=== PATIENT | female | born 1950 | race Caucasian/White ===

== ENCOUNTER 2020-02-20 18:27 | Inpatient (IN) ==
[2020-02-20] MEDS ORDERED: SODIUM CHLORIDE 0.9% 1,000 ML IV STA (18:58)
[2020-02-20] MEDS ORDERED: ACETAMINOPHEN 500 MG TABLET PO STA (18:59)
[2020-02-20 20:05] LABS: Basophils % 0.2 % (0.0-0.8); Hematocrit 36.6 VOL% (35.7-47.0); Hemoglobin 12.1 GM/DL (12.0-16.0); Immature Granulocytes % 0.5 %; Immature Granulocytes Absolute 0.03 #; Lymphocytes # 0.8 10*3/uL (1.4-4.0); Lymphocytes % 13.6 % (21.3-54.2); Mean Corpuscular HGB Conc 33.1 GM/DL (32-36); Mean Corpuscular Volume 94.8 FL (87-102); Mean Platelet Volume 9.8 FL (9.6-12.0); Monocytes % 3.6 % (1.7-12.7); Neutrophils % 82.1 % (38.7-73.9); Platelet Count 217 T/CUMM (130-400); Red Blood Count 3.86 MC/CUMM (3.8-5.5); Red Cell Distribution Width 12.6 % (9.3-17.3); White Blood Count 5.8 T/CUMM (4-12)
[2020-02-20 20:16] LABS: PT Patient Result 10.3 SECS (9.8-11.9)
[2020-02-20 20:29] LABS: Alanine Aminotransferase 19 U/L (13-56); Albumin 2.3 G/DL (3.4-5.0); Alkaline Phosphatase 38 U/L (45-117); Aspartate Amino Transferase 37 U/L (0-37); Bilirubin,Total < 0.39 MG/DL (0.2-1.0); Blood Urea Nitrogen 9 MG/DL (7-18); Calcium 6.8 MG/DL (8.5-10.1); Estimated Glom Filtration Rate 63 ML/MIN; Glucose 81 MG/DL (74-106); Osmolality,Calculated 265.2 MOS/KG (273-304); Total Protein 5.8 G/DL (6.4-8.3)
[2020-02-20 21:07] LABS: Apearance,Urine CLEAR (Clear); Bilirubin,Urine Negative (Negative); Blood, Urine Negative (Negative); Glucose,Urine (UA) Negative (Negative); Ketones,Urine 5 mg/dL (Negative); Mucus,Urine Occasional /LPF (Occasional); Nitrite,Urine Negative (Negative); Protein,Urine Negative; RBC,Urine 1 /HPF (0-4); Squamous Epithelial Cell,Urine Occasional /HPF (0-10); Urine Color Yellow (Yellow); Urine Specific Gravity 1.012 (1.001-1.035); Urine Urobilinogen < 2.0 EU/DL (0.2-1.0)
[2020-02-20] MEDS ORDERED: ALUMINUM/MAGNES/SIMETH MAX STR 30 ML UDCUP PO PRN (21:24)
[2020-02-20] MEDS ORDERED: CALCIUM CARBONATE CHEW 500 MG TABLET PO PRN (21:24)
[2020-02-20] MEDS ORDERED: diphenhydrAMINE CAP 25 MG CAPSULE PO PRN (21:24)
[2020-02-20] MEDS ORDERED: DEXTROSE 50% 25 GM/50 ML VIAL IV PRN (21:24)
[2020-02-20] MEDS ORDERED: hydrALAZINE 20 MG/1 ML VIAL IV PRN (21:24)
[2020-02-20] MEDS ORDERED: NICOTINE 21 MG/24 HR PATCH TRANSDERM PRN (21:24)
[2020-02-20] MEDS ORDERED: DOCUSATE SODIUM 100 MG CAPSULE PO PRN (21:24)
[2020-02-20] MEDS ORDERED: ONDANSETRON 4 MG/2 ML VIAL IV PRN (21:24)
[2020-02-20] MEDS ORDERED: GLUCAGON 1 MG VIAL IM PRN (21:24)
[2020-02-20] MEDS ORDERED: LACTULOSE 20 GM/30 ML UDCUP PO PRN (21:24)
[2020-02-20] MEDS ORDERED: SIMETHICONE CHEW 125 MG TABLET PO PRN (21:24)
[2020-02-20] MEDS ORDERED: MORPHINE 4 MG/1 ML VIAL IV PRN (21:24)
[2020-02-20] MEDS ORDERED: guaiFENesin/DM ER 600-30 MG TABLET PO PRN (21:24)
[2020-02-20] MEDS ORDERED: PROMETHAZINE 25 MG/1 ML VIAL IM PRN (21:24)
[2020-02-20] MEDS ORDERED: AZITHROMYCIN INJ 500 MG in SODIUM CHLORIDE 0.9% 250 ML IV SCH (21:30)
[2020-02-20 21:37] LABS: ABG Base Excess -1.3 MMOL/L (-2.5-2.5); ABG HCO3 23.3 MMOL/L (20-26); ABG Oxygen Saturation 99.3 % (95-100); ABG PCO2 35.9 MM HG (35-48); ABG PH 7.411 (7.35-7.45); ABG TCO2 20.2 MMOL/L (23-27)
[2020-02-20] MEDS ORDERED: ENOXAPARIN 100 MG/ML SYRINGE SUBCUT ONE (22:00)
[2020-02-20] MEDS ORDERED: ALBUTEROL INHALER 18 GM INH PRN (23:36)
[2020-02-21] MEDS: ALBUTEROL INHALER 18 GM INH SCH ×2 (02:40→06:15)
[2020-02-21 06:38] LABS: Basophils % 0.2 % (0.0-0.8); Hematocrit 36.4 VOL% (35.7-47.0); Immature Granulocytes % 0.6 %; Immature Granulocytes Absolute 0.03 #; Lymphocytes # 1.2 10*3/uL (1.4-4.0); Lymphocytes % 23.1 % (21.3-54.2); Mean Corpuscular Volume 95.3 FL (87-102); Mean Platelet Volume 10.2 FL (9.6-12.0); Monocytes % 5.8 % (1.7-12.7); Neutrophils % 70.3 % (38.7-73.9); Platelet Count 238 T/CUMM (130-400); Red Blood Count 3.82 MC/CUMM (3.8-5.5); Red Cell Distribution Width 12.7 % (9.3-17.3); White Blood Count 5.2 T/CUMM (4-12)
[2020-02-21 07:08] LABS: Albumin 2.7 G/DL (3.4-5.0); Bilirubin,Total 0.7 MG/DL (0.2-1.0); Calcium 8.1 MG/DL (8.5-10.1); Osmolality,Calculated 263.4 MOS/KG (273-304); Total Protein 6.5 G/DL (6.4-8.3)
[2020-02-21 07:20] LABS: Ferritin 173.2 ng/ml (8-252)
[2020-02-21] MEDS: AZITHROMYCIN 250 MG TABLET PO SCH (08:27)
[2020-02-21] MEDS: PANTOPRAZOLE 40 MG TABLET PO SCH (08:27)
[2020-02-21] MEDS: ACETAMINOPHEN 325 MG TABLET PO PRN ×2 (08:53→20:41)
[2020-02-21] MEDS: cefTRIAXone 1,000 MG in SYRINGE 1 EACH IV SCH (09:23)
[2020-02-21] MEDS ORDERED: ALBUTEROL INHALER 18 GM INH PRN (17:38)
[2020-02-21] MEDS: BUDESONIDE 0.5 MG/2 ML NEB RESP TX SCH (19:58)
[2020-02-21] MEDS: SIMVASTATIN 20 MG TABLET PO SCH (20:41)
[2020-02-21] MEDS: ASCORBIC ACID 500 MG TABLET PO SCH (20:41)
[2020-02-21] MEDS ORDERED: BECLOMETHASONE 40 MCG/PUFF INHALER 8.7 GM INH SCH (21:00)
[2020-02-21] MEDS: SERTRALINE 50 MG TABLET PO SCH (21:20)
[2020-02-22] MEDS: ALBUTEROL INHALER 18 GM INH SCH (01:47)
[2020-02-22] MEDS: ACETAMINOPHEN 325 MG TABLET PO PRN ×2 (06:07→20:20)
[2020-02-22 06:54] LABS: Basophils % 0.2 % (0.0-0.8); Hematocrit 36.1 VOL% (35.7-47.0); Immature Granulocytes % 0.5 %; Immature Granulocytes Absolute 0.03 #; Lymphocytes # 1.2 10*3/uL (1.4-4.0); Lymphocytes % 20.2 % (21.3-54.2); Mean Corpuscular HGB Conc 33.2 GM/DL (32-36); Mean Platelet Volume 10.3 FL (9.6-12.0); Neutrophils % 74.1 % (38.7-73.9); Platelet Count 276 T/CUMM (130-400); Red Blood Count 3.84 MC/CUMM (3.8-5.5); Red Cell Distribution Width 12.7 % (9.3-17.3); White Blood Count 5.8 T/CUMM (4-12)
[2020-02-22 07:33] LABS: Albumin 2.5 G/DL (3.4-5.0); Bilirubin,Total 0.8 MG/DL (0.2-1.0); Calcium 8.2 MG/DL (8.5-10.1); Ferritin 202.2 ng/ml (8-252); Osmolality,Calculated 262.4 MOS/KG (273-304); Total Protein 6.8 G/DL (6.4-8.3)
[2020-02-22 07:37] LABS: Free T4 (Free Thyroxine) 1.16 NG/DL (0.76-1.46); Thyroid Stimulating Hormone 1.36 uIU/ml (0.358-3.74)
[2020-02-22] MEDS: ESTRADIOL 1 MG TABLET PO SCH (08:12)
[2020-02-22] MEDS: METOPROLOL TARTRATE 100 MG TABLET PO SCH (08:12)
[2020-02-22] MEDS: ASPIRIN EC 81 MG TABLET PO SCH (08:12)
[2020-02-22] MEDS: predniSONE 20 MG TABLET PO SCH (08:12)
[2020-02-22] MEDS: ASCORBIC ACID 500 MG TABLET PO SCH ×2 (08:12→20:21)
[2020-02-22] MEDS: LEVOTHYROXINE 25 MCG TABLET PO SCH (08:12)
[2020-02-22] MEDS: AZITHROMYCIN 250 MG TABLET PO SCH (08:13)
[2020-02-22] MEDS: LOSARTAN 50 MG TABLET PO SCH (08:13)
[2020-02-22] MEDS: cefTRIAXone 1,000 MG in SYRINGE 1 EACH IV SCH (08:13)
[2020-02-22] MEDS: ZINC SULFATE 220 MG CAPSULE PO SCH (08:13)
[2020-02-22] MEDS: PANTOPRAZOLE 40 MG TABLET PO SCH (08:13)
[2020-02-22] MEDS: FLUTICASONE 50 MCG NASAL SPRAY 16 GM BOTTLE BOTH NARES SCH (08:14)
[2020-02-22 08:37] LABS: Sedimentation Rate-Westergren 75 MM/HR (0-30)
[2020-02-22] MEDS: BUDESONIDE 0.5 MG/2 ML NEB RESP TX SCH ×2 (12:05→19:00)
[2020-02-22] MEDS: IPRATROPIUM 0.06% NASAL SPRAY 15 ML BOTTLE BOTH NARES SCH ×3 (15:15→20:23)
[2020-02-22] MEDS ORDERED: SODIUM CHLORIDE 0.9% 1,000 ML IV PRN (15:42)
[2020-02-22] MEDS ORDERED: REMDESIVIR 200 MG in SODIUM CHLORIDE 0.9% 210 ML IV ONE (17:00)
[2020-02-22] MEDS: SERTRALINE 50 MG TABLET PO SCH (20:20)
[2020-02-22] MEDS: SIMVASTATIN 20 MG TABLET PO SCH (20:21)
[2020-02-23] MEDS: ACETAMINOPHEN 325 MG TABLET PO PRN ×2 (06:20→12:42)
[2020-02-23 06:33] LABS: Basophils % 0.1 % (0.0-0.8); Hematocrit 36.6 VOL% (35.7-47.0); Hemoglobin 12.5 GM/DL (12.0-16.0); Immature Granulocytes % 0.6 %; Immature Granulocytes Absolute 0.06 #; Lymphocytes # 1.1 10*3/uL (1.4-4.0); Lymphocytes % 11.9 % (21.3-54.2); Mean Corpuscular HGB Conc 34.2 GM/DL (32-36); Mean Corpuscular Volume 92.7 FL (87-102); Mean Platelet Volume 10.5 FL (9.6-12.0); Monocytes % 4.7 % (1.7-12.7); Neutrophils % 82.7 % (38.7-73.9); Platelet Count 300 T/CUMM (130-400); Red Blood Count 3.95 MC/CUMM (3.8-5.5); Red Cell Distribution Width 12.7 % (9.3-17.3); White Blood Count 9.3 T/CUMM (4-12)
[2020-02-23 06:42] LABS: Alanine Aminotransferase 28 U/L (13-56); Albumin 2.4 G/DL (3.4-5.0); Alkaline Phosphatase 48 U/L (45-117); Aspartate Amino Transferase 48 U/L (0-37); Bilirubin,Total < 0.39 MG/DL (0.2-1.0); Blood Urea Nitrogen 9 MG/DL (7-18); Calcium 8.5 MG/DL (8.5-10.1); Estimated Glom Filtration Rate 63 ML/MIN; Ferritin 225.1 ng/ml (8-252); Glucose 85 MG/DL (74-106); Osmolality,Calculated 267.1 MOS/KG (273-304); Total Protein 6.6 G/DL (6.4-8.3)
[2020-02-23 06:44] LABS: Risk Ratio 2.2; VLDL CHOLESTEROL 15.4 MG/DL
[2020-02-23] MEDS: BUDESONIDE 0.5 MG/2 ML NEB RESP TX SCH ×2 (07:53→20:12)
[2020-02-23 08:41] LABS: Sedimentation Rate-Westergren 73 MM/HR (0-30)
[2020-02-23] MEDS: ASPIRIN EC 81 MG TABLET PO SCH (08:43)
[2020-02-23] MEDS: predniSONE 20 MG TABLET PO SCH (08:43)
[2020-02-23] MEDS: AZITHROMYCIN 250 MG TABLET PO SCH (08:44)
[2020-02-23] MEDS: PANTOPRAZOLE 40 MG TABLET PO SCH (08:44)
[2020-02-23] MEDS: ESTRADIOL 1 MG TABLET PO SCH (08:44)
[2020-02-23] MEDS: LEVOTHYROXINE 25 MCG TABLET PO SCH (08:44)
[2020-02-23] MEDS: ASCORBIC ACID 500 MG TABLET PO SCH ×2 (08:44→21:48)
[2020-02-23] MEDS: METOPROLOL TARTRATE 100 MG TABLET PO SCH (08:44)
[2020-02-23] MEDS: LOSARTAN 50 MG TABLET PO SCH (08:44)
[2020-02-23] MEDS: cefTRIAXone 1,000 MG in SYRINGE 1 EACH IV SCH (08:45)
[2020-02-23] MEDS: FLUTICASONE 50 MCG NASAL SPRAY 16 GM BOTTLE BOTH NARES SCH (10:19)
[2020-02-23] MEDS: IPRATROPIUM 0.06% NASAL SPRAY 15 ML BOTTLE BOTH NARES SCH ×4 (10:19→21:48)
[2020-02-23] MEDS: REMDESIVIR 100 MG in SODIUM CHLORIDE 0.9% 230 ML IV SCH (17:11)
[2020-02-23] MEDS: ZALEPLON 5 MG CAPSULE PO PRN (21:48)
[2020-02-23] MEDS: SERTRALINE 50 MG TABLET PO SCH (21:48)
[2020-02-23] MEDS: SIMVASTATIN 20 MG TABLET PO SCH (21:48)
[2020-02-24 06:30] LABS: Basophils % 0.1 % (0.0-0.8); Hemoglobin 11.3 GM/DL (12.0-16.0); Immature Granulocytes % 0.6 %; Immature Granulocytes Absolute 0.06 #; Lymphocytes # 1.2 10*3/uL (1.4-4.0); Lymphocytes % 11.3 % (21.3-54.2); Mean Corpuscular HGB Conc 33.2 GM/DL (32-36); Mean Corpuscular Volume 94.4 FL (87-102); Mean Platelet Volume 10.1 FL (9.6-12.0); Monocytes % 4.9 % (1.7-12.7); Neutrophils % 83.1 % (38.7-73.9); Platelet Count 380 T/CUMM (130-400); Red Cell Distribution Width 12.8 % (9.3-17.3); White Blood Count 10.8 T/CUMM (4-12)
[2020-02-24 07:09] LABS: Albumin 2.3 G/DL (3.4-5.0); Bilirubin,Total 0.7 MG/DL (0.2-1.0); Calcium 8.6 MG/DL (8.5-10.1); Ferritin 204.6 ng/ml (8-252); Osmolality,Calculated 276.5 MOS/KG (273-304); Total Protein 6.3 G/DL (6.4-8.3)
[2020-02-24 07:55] LABS: Sedimentation Rate-Westergren 96 MM/HR (0-30)
[2020-02-24] MEDS: predniSONE 20 MG TABLET PO SCH (08:23)
[2020-02-24] MEDS: LEVOTHYROXINE 25 MCG TABLET PO SCH (08:23)
[2020-02-24] MEDS: AZITHROMYCIN 250 MG TABLET PO SCH (08:24)
[2020-02-24] MEDS: ASPIRIN EC 81 MG TABLET PO SCH (08:24)
[2020-02-24] MEDS: LOSARTAN 50 MG TABLET PO SCH (08:24)
[2020-02-24] MEDS: ESTRADIOL 1 MG TABLET PO SCH (08:24)
[2020-02-24] MEDS: METOPROLOL TARTRATE 100 MG TABLET PO SCH (08:24)
[2020-02-24] MEDS: ASCORBIC ACID 500 MG TABLET PO SCH ×2 (08:25→22:31)
[2020-02-24] MEDS: ENOXAPARIN 40 MG/0.4 ML SYRINGE SUBCUT SCH ×2 (08:25→22:30)
[2020-02-24] MEDS: ZINC SULFATE 220 MG CAPSULE PO SCH (08:25)
[2020-02-24] MEDS: FLUTICASONE 50 MCG NASAL SPRAY 16 GM BOTTLE BOTH NARES SCH (08:25)
[2020-02-24] MEDS: IPRATROPIUM 0.06% NASAL SPRAY 15 ML BOTTLE BOTH NARES SCH ×4 (08:25→22:30)
[2020-02-24] MEDS: cefTRIAXone 1,000 MG in SYRINGE 1 EACH IV SCH (08:28)
[2020-02-24] MEDS: DEXAMETHASONE 4 MG TABLET PO SCH (12:15)
[2020-02-24] MEDS: REMDESIVIR 100 MG in SODIUM CHLORIDE 0.9% 230 ML IV SCH (22:31)
[2020-02-24] MEDS: SERTRALINE 50 MG TABLET PO SCH (22:31)
[2020-02-24] MEDS: SIMVASTATIN 20 MG TABLET PO SCH (22:31)
[2020-02-25 06:17] LABS: Basophils % 0.1 % (0.0-0.8); Hematocrit 34.5 VOL% (35.7-47.0); Hemoglobin 11.7 GM/DL (12.0-16.0); Immature Granulocytes % 0.8 %; Immature Granulocytes Absolute 0.11 #; Lymphocytes # 1.1 10*3/uL (1.4-4.0); Lymphocytes % 7.9 % (21.3-54.2); Mean Corpuscular HGB Conc 33.9 GM/DL (32-36); Mean Corpuscular Volume 92.2 FL (87-102); Mean Platelet Volume 10.3 FL (9.6-12.0); Monocytes % 4.4 % (1.7-12.7); Neutrophils % 86.8 % (38.7-73.9); Platelet Count 449 T/CUMM (130-400); Red Blood Count 3.74 MC/CUMM (3.8-5.5)
[2020-02-25 06:52] LABS: Hypochromasia 1+; Lymphocytes 6 % (20-55); Ovalocytes Slight; Platelet Estimate Adequate; Segmented Neutrophils 89 % (50-85); Total Cells Counted 100
[2020-02-25 07:00] LABS: Albumin 2.4 G/DL (3.4-5.0); Bilirubin,Total 1.1 MG/DL (0.2-1.0); Calcium 8.8 MG/DL (8.5-10.1); Ferritin 170.2 ng/ml (8-252); Osmolality,Calculated 276.7 MOS/KG (273-304); Total Protein 6.5 G/DL (6.4-8.3)
[2020-02-25 07:30] LABS: Sedimentation Rate-Westergren 81 MM/HR (0-30)
[2020-02-25] MEDS: LEVOTHYROXINE 25 MCG TABLET PO SCH (08:14)
[2020-02-25] MEDS: ESTRADIOL 1 MG TABLET PO SCH (08:14)
[2020-02-25] MEDS: ASPIRIN EC 81 MG TABLET PO SCH (08:14)
[2020-02-25] MEDS: AZITHROMYCIN 250 MG TABLET PO SCH (08:15)
[2020-02-25] MEDS: DEXAMETHASONE 4 MG TABLET PO SCH (08:15)
[2020-02-25] MEDS: IPRATROPIUM 0.06% NASAL SPRAY 15 ML BOTTLE BOTH NARES SCH ×4 (08:15→21:14)
[2020-02-25] MEDS: LOSARTAN 50 MG TABLET PO SCH (08:15)
[2020-02-25] MEDS: ASCORBIC ACID 500 MG TABLET PO SCH ×2 (08:15→21:14)
[2020-02-25] MEDS: FLUTICASONE 50 MCG NASAL SPRAY 16 GM BOTTLE BOTH NARES SCH (08:16)
[2020-02-25] MEDS: ENOXAPARIN 40 MG/0.4 ML SYRINGE SUBCUT SCH ×2 (08:16→21:14)
[2020-02-25] MEDS: cefTRIAXone 1,000 MG in SYRINGE 1 EACH IV SCH (08:16)
[2020-02-25] MEDS: METOPROLOL TARTRATE 100 MG TABLET PO SCH (08:16)
[2020-02-25] MEDS: SIMVASTATIN 20 MG TABLET PO SCH (21:14)
[2020-02-25] MEDS: SERTRALINE 50 MG TABLET PO SCH (21:14)
[2020-02-25] MEDS: REMDESIVIR 100 MG in SODIUM CHLORIDE 0.9% 230 ML IV SCH (21:14)
[2020-02-26] MEDS: ACETAMINOPHEN 325 MG TABLET PO PRN ×2 (00:12→20:32)
[2020-02-26 07:26] LABS: Albumin 2.2 G/DL (3.4-5.0); Bilirubin,Total 0.5 MG/DL (0.2-1.0); Calcium 8.6 MG/DL (8.5-10.1); Ferritin 152.2 ng/ml (8-252); Osmolality,Calculated 277.7 MOS/KG (273-304); Total Protein 6.1 G/DL (6.4-8.3)
[2020-02-26 07:46] LABS: Basophils % 0.1 % (0.0-0.8); Hematocrit 33.5 VOL% (35.7-47.0); Hemoglobin 11.4 GM/DL (12.0-16.0); Immature Granulocytes Absolute 0.15 #; Lymphocytes # 1.1 10*3/uL (1.4-4.0); Lymphocytes % 7.4 % (21.3-54.2); Mean Corpuscular Volume 92.8 FL (87-102); Mean Platelet Volume 10.5 FL (9.6-12.0); Monocytes % 3.6 % (1.7-12.7); Neutrophils % 87.9 % (38.7-73.9); Platelet Count 489 T/CUMM (130-400); Red Blood Count 3.61 MC/CUMM (3.8-5.5); White Blood Count 15.3 T/CUMM (4-12)
[2020-02-26] MEDS: ASPIRIN EC 81 MG TABLET PO SCH (08:22)
[2020-02-26] MEDS: LEVOTHYROXINE 25 MCG TABLET PO SCH (08:22)
[2020-02-26] MEDS: ZINC SULFATE 220 MG CAPSULE PO SCH (08:22)
[2020-02-26] MEDS: ESTRADIOL 1 MG TABLET PO SCH (08:22)
[2020-02-26] MEDS: METOPROLOL TARTRATE 100 MG TABLET PO SCH (08:23)
[2020-02-26] MEDS: cefTRIAXone 1,000 MG in SYRINGE 1 EACH IV SCH (08:23)
[2020-02-26] MEDS: LOSARTAN 50 MG TABLET PO SCH (08:23)
[2020-02-26] MEDS: ASCORBIC ACID 500 MG TABLET PO SCH ×2 (08:23→20:22)
[2020-02-26] MEDS: DEXAMETHASONE 4 MG TABLET PO SCH (08:23)
[2020-02-26] MEDS: IPRATROPIUM 0.06% NASAL SPRAY 15 ML BOTTLE BOTH NARES SCH ×4 (08:24→20:23)
[2020-02-26] MEDS: FLUTICASONE 50 MCG NASAL SPRAY 16 GM BOTTLE BOTH NARES SCH (08:24)
[2020-02-26] MEDS: ENOXAPARIN 40 MG/0.4 ML SYRINGE SUBCUT SCH ×2 (08:24→20:22)
[2020-02-26 10:26] LABS: Sedimentation Rate-Westergren 71 MM/HR (0-30)
[2020-02-26] MEDS: REMDESIVIR 100 MG in SODIUM CHLORIDE 0.9% 230 ML IV SCH (20:22)
[2020-02-26] MEDS: SIMVASTATIN 20 MG TABLET PO SCH (20:23)
[2020-02-26] MEDS: SERTRALINE 50 MG TABLET PO SCH (20:23)
[2020-02-27 06:03] LABS: Basophils % 0.1 % (0.0-0.8); Hematocrit 34.6 VOL% (35.7-47.0); Hemoglobin 11.7 GM/DL (12.0-16.0); Immature Granulocytes Absolute 0.15 #; Lymphocytes # 0.9 10*3/uL (1.4-4.0); Mean Corpuscular HGB Conc 33.8 GM/DL (32-36); Mean Corpuscular Volume 92.5 FL (87-102); Mean Platelet Volume 10.6 FL (9.6-12.0); Monocytes % 3.6 % (1.7-12.7); Neutrophils % 89.3 % (38.7-73.9); Platelet Count 557 T/CUMM (130-400); Red Blood Count 3.74 MC/CUMM (3.8-5.5); Red Cell Distribution Width 12.8 % (9.3-17.3); White Blood Count 15.6 T/CUMM (4-12)
[2020-02-27 06:37] LABS: Albumin 2.2 G/DL (3.4-5.0); Bilirubin,Total 1.7 MG/DL (0.2-1.0); Calcium 8.5 MG/DL (8.5-10.1); Ferritin 161.3 ng/ml (8-252); Total Protein 6.2 G/DL (6.4-8.3)
[2020-02-27 07:51] LABS: Sedimentation Rate-Westergren 93 MM/HR (0-30)
[2020-02-27] MEDS: METOPROLOL TARTRATE 100 MG TABLET PO SCH (08:07)
[2020-02-27] MEDS: DEXAMETHASONE 4 MG TABLET PO SCH (08:08)
[2020-02-27] MEDS: LEVOTHYROXINE 25 MCG TABLET PO SCH (08:08)
[2020-02-27] MEDS: ASCORBIC ACID 500 MG TABLET PO SCH ×2 (08:08→20:59)
[2020-02-27] MEDS: ASPIRIN EC 81 MG TABLET PO SCH (08:08)
[2020-02-27] MEDS: LOSARTAN 50 MG TABLET PO SCH (08:08)
[2020-02-27] MEDS: ESTRADIOL 1 MG TABLET PO SCH (08:08)
[2020-02-27] MEDS: FLUTICASONE 50 MCG NASAL SPRAY 16 GM BOTTLE BOTH NARES SCH (08:09)
[2020-02-27] MEDS: ENOXAPARIN 40 MG/0.4 ML SYRINGE SUBCUT SCH ×2 (08:09→20:59)
[2020-02-27] MEDS: IPRATROPIUM 0.06% NASAL SPRAY 15 ML BOTTLE BOTH NARES SCH ×4 (08:09→20:59)
[2020-02-27] MEDS: cefTRIAXone 1,000 MG in SYRINGE 1 EACH IV SCH (08:09)
[2020-02-27] MEDS ORDERED: FUROSEMIDE 40 MG/4 ML VIAL IV ONE (10:30)
[2020-02-27] MEDS: FENOFIBRATE 145 MG TABLET PO SCH (13:24)
[2020-02-27] MEDS: SERTRALINE 50 MG TABLET PO SCH (20:59)
[2020-02-27] MEDS: ZALEPLON 5 MG CAPSULE PO PRN (20:59)
[2020-02-27] MEDS: SIMVASTATIN 20 MG TABLET PO SCH (20:59)
[2020-02-28] MEDS: ALBUTEROL INHALER 18 GM INH PRN ×3 (00:57→12:26)
[2020-02-28 09:20] LABS: Basophils % 0.1 % (0.0-0.8); Hematocrit 37.2 VOL% (35.7-47.0); Hemoglobin 12.1 GM/DL (12.0-16.0); Immature Granulocytes % 1.3 %; Lymphocytes # 1.2 10*3/uL (1.4-4.0); Lymphocytes % 7.2 % (21.3-54.2); Mean Corpuscular HGB Conc 32.5 GM/DL (32-36); Mean Corpuscular Volume 94.4 FL (87-102); Mean Platelet Volume 10.3 FL (9.6-12.0); Monocytes % 1.4 % (1.7-12.7); Platelet Count 606 T/CUMM (130-400); Red Blood Count 3.94 MC/CUMM (3.8-5.5); Red Cell Distribution Width 12.8 % (9.3-17.3); White Blood Count 15.9 T/CUMM (4-12)
[2020-02-28] MEDS: ASPIRIN EC 81 MG TABLET PO SCH (09:40)
[2020-02-28] MEDS: FENOFIBRATE 145 MG TABLET PO SCH (09:41)
[2020-02-28] MEDS: LEVOTHYROXINE 25 MCG TABLET PO SCH (09:41)
[2020-02-28] MEDS: DEXAMETHASONE 4 MG TABLET PO SCH (09:41)
[2020-02-28] MEDS: ESTRADIOL 1 MG TABLET PO SCH (09:41)
[2020-02-28] MEDS: cefTRIAXone 1,000 MG in SYRINGE 1 EACH IV SCH (09:42)
[2020-02-28] MEDS: ASCORBIC ACID 500 MG TABLET PO SCH ×2 (09:42→20:20)
[2020-02-28] MEDS: ENOXAPARIN 40 MG/0.4 ML SYRINGE SUBCUT SCH ×2 (09:43→20:20)
[2020-02-28] MEDS: FLUTICASONE 50 MCG NASAL SPRAY 16 GM BOTTLE BOTH NARES SCH (09:43)
[2020-02-28] MEDS: LOSARTAN 50 MG TABLET PO SCH (09:43)
[2020-02-28] MEDS: METOPROLOL TARTRATE 100 MG TABLET PO SCH (09:44)
[2020-02-28] MEDS: IPRATROPIUM 0.06% NASAL SPRAY 15 ML BOTTLE BOTH NARES SCH ×4 (09:44→20:20)
[2020-02-28] MEDS: SIMVASTATIN 20 MG TABLET PO SCH (20:20)
[2020-02-28] MEDS: ACETAMINOPHEN 325 MG TABLET PO PRN (20:21)
[2020-02-28] MEDS: SERTRALINE 50 MG TABLET PO SCH (20:21)
[2020-02-29 05:43] LABS: Basophils % 0.2 % (0.0-0.8); Eosinophils % 0.1 % (0.00-10.9); Hematocrit 36.9 VOL% (35.7-47.0); Hemoglobin 12.3 GM/DL (12.0-16.0); Immature Granulocytes % 1.6 %; Immature Granulocytes Absolute 0.25 #; Lymphocytes # 0.9 10*3/uL (1.4-4.0); Lymphocytes % 5.4 % (21.3-54.2); Mean Corpuscular HGB Conc 33.3 GM/DL (32-36); Mean Corpuscular Volume 94.1 FL (87-102); Mean Platelet Volume 10.5 FL (9.6-12.0); Monocytes % 3.5 % (1.7-12.7); Neutrophils % 89.2 % (38.7-73.9); Platelet Count 610 T/CUMM (130-400); Red Blood Count 3.92 MC/CUMM (3.8-5.5); Red Cell Distribution Width 12.8 % (9.3-17.3); White Blood Count 16.1 T/CUMM (4-12)
[2020-02-29 06:00] LABS: Calcium 9.3 MG/DL (8.5-10.1)
[2020-02-29] MEDS: FENOFIBRATE 145 MG TABLET PO SCH (08:44)
[2020-02-29] MEDS: METOPROLOL TARTRATE 100 MG TABLET PO SCH (08:44)
[2020-02-29] MEDS: DEXAMETHASONE 4 MG TABLET PO SCH (08:44)
[2020-02-29] MEDS: ASCORBIC ACID 500 MG TABLET PO SCH ×2 (08:44→21:08)
[2020-02-29] MEDS: ESTRADIOL 1 MG TABLET PO SCH (08:44)
[2020-02-29] MEDS: LEVOTHYROXINE 25 MCG TABLET PO SCH (08:44)
[2020-02-29] MEDS: ASPIRIN EC 81 MG TABLET PO SCH (08:45)
[2020-02-29] MEDS: LOSARTAN 50 MG TABLET PO SCH (08:45)
[2020-02-29] MEDS: FLUTICASONE 50 MCG NASAL SPRAY 16 GM BOTTLE BOTH NARES SCH (08:45)
[2020-02-29] MEDS: ENOXAPARIN 40 MG/0.4 ML SYRINGE SUBCUT SCH ×2 (08:45→21:08)
[2020-02-29] MEDS: IPRATROPIUM 0.06% NASAL SPRAY 15 ML BOTTLE BOTH NARES SCH ×4 (08:46→21:08)
[2020-02-29] MEDS: ALBUTEROL INHALER 18 GM INH PRN (08:46)
[2020-02-29] MEDS: SERTRALINE 50 MG TABLET PO SCH (21:08)
[2020-02-29] MEDS: SIMVASTATIN 20 MG TABLET PO SCH (21:08)
[2020-03-01 06:13] LABS: Basophils % 0.2 % (0.0-0.8); Eosinophils % 0.1 % (0.00-10.9); Hematocrit 37.7 VOL% (35.7-47.0); Hemoglobin 12.5 GM/DL (12.0-16.0); Immature Granulocytes % 1.6 %; Immature Granulocytes Absolute 0.28 #; Lymphocytes # 1.3 10*3/uL (1.4-4.0); Lymphocytes % 7.4 % (21.3-54.2); Mean Corpuscular HGB Conc 33.2 GM/DL (32-36); Mean Corpuscular Volume 94.3 FL (87-102); Mean Platelet Volume 10.4 FL (9.6-12.0); Monocytes % 3.4 % (1.7-12.7); Neutrophils % 87.3 % (38.7-73.9); Platelet Count 583 T/CUMM (130-400); Red Cell Distribution Width 12.7 % (9.3-17.3)
[2020-03-01 06:35] LABS: Calcium 9.3 MG/DL (8.5-10.1); Osmolality,Calculated 272.4 MOS/KG (273-304)
[2020-03-01] MEDS: LEVOTHYROXINE 25 MCG TABLET PO SCH (08:24)
[2020-03-01] MEDS: ESTRADIOL 1 MG TABLET PO SCH (08:24)
[2020-03-01] MEDS: DEXAMETHASONE 4 MG TABLET PO SCH (08:24)
[2020-03-01] MEDS: FENOFIBRATE 145 MG TABLET PO SCH (08:25)
[2020-03-01] MEDS: ENOXAPARIN 40 MG/0.4 ML SYRINGE SUBCUT SCH ×2 (08:25→21:12)
[2020-03-01] MEDS: LOSARTAN 50 MG TABLET PO SCH (08:25)
[2020-03-01] MEDS: ASPIRIN EC 81 MG TABLET PO SCH (08:25)
[2020-03-01] MEDS: FLUTICASONE 50 MCG NASAL SPRAY 16 GM BOTTLE BOTH NARES SCH (08:25)
[2020-03-01] MEDS: IPRATROPIUM 0.06% NASAL SPRAY 15 ML BOTTLE BOTH NARES SCH ×4 (09:42→21:50)
[2020-03-01] MEDS: METOPROLOL TARTRATE 100 MG TABLET PO SCH (09:42)
[2020-03-01] MEDS: ASCORBIC ACID 500 MG TABLET PO SCH ×2 (10:49→21:11)
[2020-03-01] MEDS: SIMVASTATIN 20 MG TABLET PO SCH (21:12)
[2020-03-01] MEDS: SERTRALINE 50 MG TABLET PO SCH (21:12)
[2020-03-02] MEDS: ASPIRIN EC 81 MG TABLET PO SCH (09:38)
[2020-03-02] MEDS: LOSARTAN 50 MG TABLET PO SCH (09:38)
[2020-03-02] MEDS: DEXAMETHASONE 4 MG TABLET PO SCH (09:38)
[2020-03-02] MEDS: IPRATROPIUM 0.06% NASAL SPRAY 15 ML BOTTLE BOTH NARES SCH ×4 (09:38→21:04)
[2020-03-02] MEDS: ESTRADIOL 1 MG TABLET PO SCH (09:39)
[2020-03-02] MEDS: FLUTICASONE 50 MCG NASAL SPRAY 16 GM BOTTLE BOTH NARES SCH (09:39)
[2020-03-02] MEDS: METOPROLOL TARTRATE 100 MG TABLET PO SCH (09:40)
[2020-03-02] MEDS: ENOXAPARIN 40 MG/0.4 ML SYRINGE SUBCUT SCH ×2 (09:40→21:02)
[2020-03-02] MEDS: FENOFIBRATE 145 MG TABLET PO SCH (09:42)
[2020-03-02] MEDS: ASCORBIC ACID 500 MG TABLET PO SCH ×2 (09:42→21:01)
[2020-03-02] MEDS: LEVOTHYROXINE 25 MCG TABLET PO SCH (09:42)
[2020-03-02] MEDS: SERTRALINE 50 MG TABLET PO SCH (21:01)
[2020-03-02] MEDS: SIMVASTATIN 20 MG TABLET PO SCH (21:02)
[2020-03-03 06:20] LABS: Basophils % 0.2 % (0.0-0.8); Eosinophils % 0.1 % (0.00-10.9); Hematocrit 38.3 VOL% (35.7-47.0); Hemoglobin 12.9 GM/DL (12.0-16.0); Immature Granulocytes % 1.7 %; Lymphocytes # 1.2 10*3/uL (1.4-4.0); Lymphocytes % 6.8 % (21.3-54.2); Mean Corpuscular HGB Conc 33.7 GM/DL (32-36); Mean Corpuscular Volume 93.6 FL (87-102); Mean Platelet Volume 10.7 FL (9.6-12.0); Monocytes % 3.6 % (1.7-12.7); Neutrophils % 87.6 % (38.7-73.9); Platelet Count 502 T/CUMM (130-400); Red Blood Count 4.09 MC/CUMM (3.8-5.5); Red Cell Distribution Width 12.8 % (9.3-17.3); White Blood Count 17.8 T/CUMM (4-12)
[2020-03-03 06:50] LABS: Calcium 9.3 MG/DL (8.5-10.1); Osmolality,Calculated 274.2 MOS/KG (273-304)
[2020-03-03] MEDS: ESTRADIOL 1 MG TABLET PO SCH (08:38)
[2020-03-03] MEDS: METOPROLOL TARTRATE 100 MG TABLET PO SCH (08:38)
[2020-03-03] MEDS: FLUTICASONE 50 MCG NASAL SPRAY 16 GM BOTTLE BOTH NARES SCH (08:38)
[2020-03-03] MEDS: LOSARTAN 50 MG TABLET PO SCH (08:38)
[2020-03-03] MEDS: ASPIRIN EC 81 MG TABLET PO SCH (08:38)
[2020-03-03] MEDS: IPRATROPIUM 0.06% NASAL SPRAY 15 ML BOTTLE BOTH NARES SCH ×4 (08:38→21:05)
[2020-03-03] MEDS: DEXAMETHASONE 4 MG TABLET PO SCH (08:38)
[2020-03-03] MEDS: ENOXAPARIN 40 MG/0.4 ML SYRINGE SUBCUT SCH ×2 (08:39→21:05)
[2020-03-03] MEDS: ASCORBIC ACID 500 MG TABLET PO SCH ×2 (08:39→21:05)
[2020-03-03] MEDS: LEVOTHYROXINE 25 MCG TABLET PO SCH (08:39)
[2020-03-03] MEDS: FENOFIBRATE 145 MG TABLET PO SCH (08:39)
[2020-03-03] MEDS: SERTRALINE 50 MG TABLET PO SCH (21:05)
[2020-03-03] MEDS: SIMVASTATIN 20 MG TABLET PO SCH (21:05)
[2020-03-04] MEDS: LEVOTHYROXINE 25 MCG TABLET PO SCH (11:04)
[2020-03-04] MEDS: LOSARTAN 50 MG TABLET PO SCH (11:04)
[2020-03-04] MEDS: DEXAMETHASONE 4 MG TABLET PO SCH (11:04)
[2020-03-04] MEDS: ASCORBIC ACID 500 MG TABLET PO SCH ×2 (11:04→21:23)
[2020-03-04] MEDS: ESTRADIOL 1 MG TABLET PO SCH (11:04)
[2020-03-04] MEDS: FENOFIBRATE 145 MG TABLET PO SCH (11:04)
[2020-03-04] MEDS: ASPIRIN EC 81 MG TABLET PO SCH (11:05)
[2020-03-04] MEDS: IPRATROPIUM 0.06% NASAL SPRAY 15 ML BOTTLE BOTH NARES SCH ×4 (11:05→21:23)
[2020-03-04] MEDS: FLUTICASONE 50 MCG NASAL SPRAY 16 GM BOTTLE BOTH NARES SCH (11:05)
[2020-03-04] MEDS: ENOXAPARIN 40 MG/0.4 ML SYRINGE SUBCUT SCH ×2 (11:05→21:24)
[2020-03-04] MEDS: METOPROLOL TARTRATE 100 MG TABLET PO SCH (11:15)
[2020-03-04] MEDS: SERTRALINE 50 MG TABLET PO SCH (21:23)
[2020-03-04] MEDS: SIMVASTATIN 20 MG TABLET PO SCH (21:23)
[2020-03-05] MEDS: ENOXAPARIN 40 MG/0.4 ML SYRINGE SUBCUT SCH ×2 (08:43→20:32)
[2020-03-05] MEDS: ESTRADIOL 1 MG TABLET PO SCH (08:43)
[2020-03-05] MEDS: ASPIRIN EC 81 MG TABLET PO SCH (08:43)
[2020-03-05] MEDS: FENOFIBRATE 145 MG TABLET PO SCH (08:43)
[2020-03-05] MEDS: METOPROLOL TARTRATE 100 MG TABLET PO SCH (08:43)
[2020-03-05] MEDS: ASCORBIC ACID 500 MG TABLET PO SCH ×2 (08:44→20:32)
[2020-03-05] MEDS: FLUTICASONE 50 MCG NASAL SPRAY 16 GM BOTTLE BOTH NARES SCH (08:44)
[2020-03-05] MEDS: IPRATROPIUM 0.06% NASAL SPRAY 15 ML BOTTLE BOTH NARES SCH ×4 (08:44→20:31)
[2020-03-05] MEDS: LOSARTAN 50 MG TABLET PO SCH (08:44)
[2020-03-05] MEDS: LEVOTHYROXINE 25 MCG TABLET PO SCH (08:44)
[2020-03-05] MEDS: SIMVASTATIN 20 MG TABLET PO SCH (20:32)
[2020-03-05] MEDS: SERTRALINE 50 MG TABLET PO SCH (20:32)
[2020-03-06 06:29] LABS: Basophils % 0.2 % (0.0-0.8); Eosinophils # 0.2 10*3/uL (0.0-0.87); Eosinophils % 1.4 % (0.00-10.9); Hematocrit 33.7 VOL% (35.7-47.0); Hemoglobin 11.1 GM/DL (12.0-16.0); Immature Granulocytes % 1.7 %; Immature Granulocytes Absolute 0.21 #; Lymphocytes # 1.5 10*3/uL (1.4-4.0); Mean Corpuscular HGB Conc 32.9 GM/DL (32-36); Mean Corpuscular Volume 94.9 FL (87-102); Mean Platelet Volume 10.7 FL (9.6-12.0); Monocytes % 3.4 % (1.7-12.7); Neutrophils % 81.3 % (38.7-73.9); Platelet Count 377 T/CUMM (130-400); Red Blood Count 3.55 MC/CUMM (3.8-5.5); Red Cell Distribution Width 12.6 % (9.3-17.3); White Blood Count 12.4 T/CUMM (4-12)
[2020-03-06 06:45] LABS: Calcium 9.5 MG/DL (8.5-10.1); Osmolality,Calculated 269.5 MOS/KG (273-304)
[2020-03-06] MEDS: ENOXAPARIN 40 MG/0.4 ML SYRINGE SUBCUT SCH ×2 (08:42→20:28)
[2020-03-06] MEDS: ESTRADIOL 1 MG TABLET PO SCH (08:43)
[2020-03-06] MEDS: LEVOTHYROXINE 25 MCG TABLET PO SCH (08:43)
[2020-03-06] MEDS: ASCORBIC ACID 500 MG TABLET PO SCH ×2 (08:43→20:28)
[2020-03-06] MEDS: FENOFIBRATE 145 MG TABLET PO SCH (08:43)
[2020-03-06] MEDS: ASPIRIN EC 81 MG TABLET PO SCH (08:43)
[2020-03-06] MEDS: METOPROLOL TARTRATE 100 MG TABLET PO SCH (08:43)
[2020-03-06] MEDS: LOSARTAN 50 MG TABLET PO SCH (08:43)
[2020-03-06] MEDS: IPRATROPIUM 0.06% NASAL SPRAY 15 ML BOTTLE BOTH NARES SCH ×4 (08:44→20:28)
[2020-03-06] MEDS: FLUTICASONE 50 MCG NASAL SPRAY 16 GM BOTTLE BOTH NARES SCH (08:44)
[2020-03-06] MEDS: ACETAMINOPHEN 325 MG TABLET PO PRN (19:17)
[2020-03-06 20:01] LABS: Specimen Source THROAT
[2020-03-06] MEDS: SIMVASTATIN 20 MG TABLET PO SCH (20:28)
[2020-03-06] MEDS: SERTRALINE 50 MG TABLET PO SCH (20:28)
[2020-03-06] MEDS: CYCLOBENZAPRINE 10 MG TABLET PO PRN (20:31)
[2020-03-07 04:54] LABS: Allen Test Positive; Pt O2 Delivery Device Other
[2020-03-07 04:56] LABS: ABG Base Excess 3.7 MMOL/L (-2.5-2.5); ABG HCO3 27.2 MMOL/L (20-26); ABG PCO2 37.3 MM HG (35-48); ABG TCO2 28.3 MMOL/L (23-27)
[2020-03-07 04:58] LABS: ABG Oxygen Saturation 74.1 % (95-100)
[2020-03-07 04:59] LABS: ABG PO2 36.4 MM HG (80-95)
[2020-03-07] MEDS: ACETAMINOPHEN 325 MG TABLET PO PRN (06:00)
[2020-03-07 06:25] LABS: ABG Base Excess 6.3 MMOL/L (-2.5-2.5); ABG HCO3 30.1 MMOL/L (20-26); ABG Oxygen Saturation 93.9 % (95-100); ABG PCO2 38.4 MM HG (35-48); ABG PH 7.499 (7.35-7.45); ABG PO2 66.5 MM HG (80-95); ABG TCO2 26.4 MMOL/L (23-27); Allen Test Positive; Pt O2 Delivery Device Other
[2020-03-07 06:43] LABS: Basophils % 0.1 % (0.0-0.8); Eosinophils # 0.2 10*3/uL (0.0-0.87); Eosinophils % 1.1 % (0.00-10.9); Hemoglobin 11.7 GM/DL (12.0-16.0); Immature Granulocytes % 1.5 %; Immature Granulocytes Absolute 0.27 #; Lymphocytes % 5.7 % (21.3-54.2); Mean Corpuscular HGB Conc 33.4 GM/DL (32-36); Mean Corpuscular Volume 94.1 FL (87-102); Mean Platelet Volume 10.7 FL (9.6-12.0); Monocytes % 3.2 % (1.7-12.7); Neutrophils % 88.4 % (38.7-73.9); Platelet Count 367 T/CUMM (130-400); Red Blood Count 3.72 MC/CUMM (3.8-5.5); Red Cell Distribution Width 12.7 % (9.3-17.3)
[2020-03-07 07:01] LABS: Osmolality,Calculated 265.8 MOS/KG (273-304)
[2020-03-07] MEDS: ASCORBIC ACID 500 MG TABLET PO SCH ×2 (09:11→21:00)
[2020-03-07] MEDS: LEVOTHYROXINE 25 MCG TABLET PO SCH (09:11)
[2020-03-07] MEDS: ASPIRIN EC 81 MG TABLET PO SCH (09:11)
[2020-03-07] MEDS: ESTRADIOL 1 MG TABLET PO SCH (09:11)
[2020-03-07] MEDS: FENOFIBRATE 145 MG TABLET PO SCH (09:11)
[2020-03-07] MEDS: IPRATROPIUM 0.06% NASAL SPRAY 15 ML BOTTLE BOTH NARES SCH ×4 (09:12→21:00)
[2020-03-07] MEDS: LOSARTAN 50 MG TABLET PO SCH (09:12)
[2020-03-07] MEDS: ENOXAPARIN 40 MG/0.4 ML SYRINGE SUBCUT SCH (09:12)
[2020-03-07] MEDS: METOPROLOL TARTRATE 100 MG TABLET PO SCH (09:12)
[2020-03-07] MEDS: FLUTICASONE 50 MCG NASAL SPRAY 16 GM BOTTLE BOTH NARES SCH (09:12)
[2020-03-07] MEDS ORDERED: SODIUM CHLORIDE 0.9% 500 ML IV ONE ×2 (09:37→11:07)
[2020-03-07 10:11] LABS: Ferritin 243.3 ng/ml (8-252)
[2020-03-07] MEDS ORDERED: ENOXAPARIN 40 MG/0.4 ML SYRINGE SUBCUT ONE (11:30)
[2020-03-07] MEDS: ZINC GLUCONATE 50 MG TABLET PO SCH ×2 (14:23→21:00)
[2020-03-07] MEDS: FAMOTIDINE 20 MG TABLET PO SCH ×2 (14:23→21:00)
[2020-03-07] MEDS: DEXAMETHASONE 4 MG/1 ML VIAL IV SCH (14:23)
[2020-03-07] MEDS ORDERED: FUROSEMIDE 20 MG/2 ML VIAL IV ONE (15:39)
[2020-03-07] MEDS: SIMVASTATIN 20 MG TABLET PO SCH (21:00)
[2020-03-07] MEDS: SERTRALINE 50 MG TABLET PO SCH (21:00)
[2020-03-07] MEDS: ENOXAPARIN 80 MG/0.8 ML SYRINGE SUBCUT SCH (21:30)
[2020-03-08 04:35] LABS: Basophils % 0.1 % (0.0-0.8); Eosinophils % 0.1 % (0.00-10.9); Hematocrit 32.3 VOL% (35.7-47.0); Hemoglobin 10.8 GM/DL (12.0-16.0); Immature Granulocytes % 1.4 %; Immature Granulocytes Absolute 0.27 #; Lymphocytes # 0.9 10*3/uL (1.4-4.0); Lymphocytes % 4.8 % (21.3-54.2); Mean Corpuscular HGB Conc 33.4 GM/DL (32-36); Mean Corpuscular Volume 94.7 FL (87-102); Mean Platelet Volume 10.8 FL (9.6-12.0); Monocytes % 2.1 % (1.7-12.7); Neutrophils % 91.5 % (38.7-73.9); Platelet Count 342 T/CUMM (130-400); Red Blood Count 3.41 MC/CUMM (3.8-5.5); Red Cell Distribution Width 12.8 % (9.3-17.3); White Blood Count 18.8 T/CUMM (4-12)
[2020-03-08 05:01] LABS: Calcium 9.7 MG/DL (8.5-10.1); Ferritin 331.6 ng/ml (8-252); Osmolality,Calculated 274.4 MOS/KG (273-304)
[2020-03-08 05:37] LABS: Lymphocytes 5 % (20-55); Segmented Neutrophils 93 % (50-85)
[2020-03-08 05:38] LABS: Hypochromasia 1+; Platelet Estimate Normal; Polychromasia Few; Total Cells Counted 100
[2020-03-08] MEDS: METOPROLOL TARTRATE 100 MG TABLET PO SCH (08:17)
[2020-03-08] MEDS: ZINC GLUCONATE 50 MG TABLET PO SCH ×2 (08:17→20:10)
[2020-03-08] MEDS: LEVOTHYROXINE 25 MCG TABLET PO SCH (08:17)
[2020-03-08] MEDS: FENOFIBRATE 145 MG TABLET PO SCH (08:17)
[2020-03-08] MEDS: CETIRIZINE 10 MG TABLET PO SCH (08:17)
[2020-03-08] MEDS: ASPIRIN EC 81 MG TABLET PO SCH (08:17)
[2020-03-08] MEDS: ASCORBIC ACID 500 MG TABLET PO SCH ×2 (08:17→20:10)
[2020-03-08] MEDS: ESTRADIOL 1 MG TABLET PO SCH (08:17)
[2020-03-08] MEDS: ENOXAPARIN 80 MG/0.8 ML SYRINGE SUBCUT SCH ×2 (08:18→20:10)
[2020-03-08] MEDS: DEXAMETHASONE 4 MG/1 ML VIAL IV SCH (08:18)
[2020-03-08] MEDS: FLUTICASONE 50 MCG NASAL SPRAY 16 GM BOTTLE BOTH NARES SCH (08:20)
[2020-03-08] MEDS: IPRATROPIUM 0.06% NASAL SPRAY 15 ML BOTTLE BOTH NARES SCH ×4 (08:20→20:10)
[2020-03-08] MEDS: FAMOTIDINE 20 MG TABLET PO SCH ×2 (08:22→20:10)
[2020-03-08] MEDS ORDERED: FUROSEMIDE 40 MG/4 ML VIAL IV ONE (10:30)
[2020-03-08 13:23] VITALS: BP 124/55
[2020-03-08] MEDS: SERTRALINE 50 MG TABLET PO SCH (20:10)
[2020-03-08] MEDS: SIMVASTATIN 20 MG TABLET PO SCH (20:10)
[2020-03-09 04:19] LABS: Basophils % 0.1 % (0.0-0.8); Eosinophils % 0.1 % (0.00-10.9); Hematocrit 33.2 VOL% (35.7-47.0); Hemoglobin 11.2 GM/DL (12.0-16.0); Immature Granulocytes % 1.3 %; Immature Granulocytes Absolute 0.23 #; Lymphocytes % 5.9 % (21.3-54.2); Mean Corpuscular HGB Conc 33.7 GM/DL (32-36); Mean Corpuscular Volume 94.3 FL (87-102); Mean Platelet Volume 10.9 FL (9.6-12.0); Monocytes % 3.9 % (1.7-12.7); Neutrophils % 88.7 % (38.7-73.9); Platelet Count 370 T/CUMM (130-400); Red Blood Count 3.52 MC/CUMM (3.8-5.5); White Blood Count 17.6 T/CUMM (4-12)
[2020-03-09 04:29] LABS: Calcium 10.4 MG/DL (8.5-10.1); Osmolality,Calculated 284.8 MOS/KG (273-304)
[2020-03-09 06:06] LABS: ABG Base Excess 7.7 MMOL/L (-2.5-2.5); ABG HCO3 31.3 MMOL/L (20-26); ABG PCO2 46.3 MM HG (35-48); ABG PH 7.456 (7.35-7.45); ABG PO2 64.8 MM HG (80-95); ABG TCO2 29.2 MMOL/L (23-27)
[2020-03-09] MEDS: ASPIRIN EC 81 MG TABLET PO SCH (08:22)
[2020-03-09] MEDS: ZINC GLUCONATE 50 MG TABLET PO SCH ×2 (08:22→20:02)
[2020-03-09] MEDS: ESTRADIOL 1 MG TABLET PO SCH (08:23)
[2020-03-09] MEDS: FENOFIBRATE 145 MG TABLET PO SCH (08:23)
[2020-03-09] MEDS: DEXAMETHASONE 4 MG/1 ML VIAL IV SCH (08:23)
[2020-03-09] MEDS: ASCORBIC ACID 500 MG TABLET PO SCH ×2 (08:23→20:03)
[2020-03-09] MEDS: LEVOTHYROXINE 25 MCG TABLET PO SCH (08:23)
[2020-03-09] MEDS: CETIRIZINE 10 MG TABLET PO SCH (08:23)
[2020-03-09] MEDS: METOPROLOL TARTRATE 100 MG TABLET PO SCH (08:23)
[2020-03-09] MEDS: FAMOTIDINE 20 MG TABLET PO SCH ×2 (08:23→20:02)
[2020-03-09] MEDS: ENOXAPARIN 80 MG/0.8 ML SYRINGE SUBCUT SCH ×2 (08:24→20:03)
[2020-03-09] MEDS: FLUTICASONE 50 MCG NASAL SPRAY 16 GM BOTTLE BOTH NARES SCH (08:24)
[2020-03-09] MEDS: IPRATROPIUM 0.06% NASAL SPRAY 15 ML BOTTLE BOTH NARES SCH ×3 (08:24→17:04)
[2020-03-09] MEDS ORDERED: PHENOL 1.4% THROAT SPRAY 177 ML BOTTLE PO PRN (10:08)
[2020-03-09] MEDS ORDERED: FUROSEMIDE 40 MG/4 ML VIAL IV ONE (10:30)
[2020-03-09] MEDS ORDERED: SKIN HEALING OINT (AQUAPHOR) 50 GM TUBE TOP PRN (13:18)
[2020-03-09] MEDS: SERTRALINE 50 MG TABLET PO SCH (20:02)
[2020-03-09] MEDS: SIMVASTATIN 20 MG TABLET PO SCH (20:03)
[2020-03-09] MEDS: CYCLOBENZAPRINE 10 MG TABLET PO PRN (21:49)
[2020-03-10 04:24] LABS: Basophils % 0.1 % (0.0-0.8); Eosinophils % 0.1 % (0.00-10.9); Hematocrit 34.2 VOL% (35.7-47.0); Immature Granulocytes % 1.1 %; Immature Granulocytes Absolute 0.15 #; Lymphocytes # 1.1 10*3/uL (1.4-4.0); Lymphocytes % 7.7 % (21.3-54.2); Mean Corpuscular HGB Conc 32.2 GM/DL (32-36); Mean Corpuscular Volume 96.1 FL (87-102); Mean Platelet Volume 11.5 FL (9.6-12.0); Monocytes % 4.3 % (1.7-12.7); Neutrophils % 86.7 % (38.7-73.9); Platelet Count 294 T/CUMM (130-400); Red Blood Count 3.56 MC/CUMM (3.8-5.5); Red Cell Distribution Width 12.8 % (9.3-17.3); White Blood Count 13.9 T/CUMM (4-12)
[2020-03-10 05:05] LABS: Calcium 9.8 MG/DL (8.5-10.1); Osmolality,Calculated 283.1 MOS/KG (273-304)
[2020-03-10 05:35] LABS: ABG Base Excess 8.8 MMOL/L (-2.5-2.5); ABG HCO3 32.6 MMOL/L (20-26); ABG Oxygen Saturation 96.2 % (95-100); ABG PCO2 51.9 MM HG (35-48); ABG PH 7.433 (7.35-7.45); ABG PO2 88.7 MM HG (80-95); ABG TCO2 31.1 MMOL/L (23-27); Allen Test Positive; Pt O2 Delivery Device BIPAP
[2020-03-10] MEDS: IPRATROPIUM 0.06% NASAL SPRAY 15 ML BOTTLE BOTH NARES SCH ×2 (06:17→09:59)
[2020-03-10] MEDS: ENOXAPARIN 80 MG/0.8 ML SYRINGE SUBCUT SCH (09:45)
[2020-03-10] MEDS: DEXAMETHASONE 4 MG/1 ML VIAL IV SCH (09:45)
[2020-03-10] MEDS: FENOFIBRATE 145 MG TABLET PO SCH (09:46)
[2020-03-10] MEDS: ZINC GLUCONATE 50 MG TABLET PO SCH (09:46)
[2020-03-10] MEDS: LEVOTHYROXINE 25 MCG TABLET PO SCH (09:46)
[2020-03-10] MEDS: ASPIRIN EC 81 MG TABLET PO SCH (09:46)
[2020-03-10] MEDS: ESTRADIOL 1 MG TABLET PO SCH (09:46)
[2020-03-10] MEDS: ASCORBIC ACID 500 MG TABLET PO SCH (09:46)
[2020-03-10] MEDS: CETIRIZINE 10 MG TABLET PO SCH (09:46)
[2020-03-10] MEDS: FAMOTIDINE 20 MG TABLET PO SCH (09:46)
[2020-03-10] MEDS: METOPROLOL TARTRATE 100 MG TABLET PO SCH (09:46)
[2020-03-10] MEDS: FLUTICASONE 50 MCG NASAL SPRAY 16 GM BOTTLE BOTH NARES SCH (09:59)
== END 2020-03-10 15:21 | DRG 177 ==
LOC: EDBD → EDUNIT# → N.ED 18:27 → N.EDINP 21:25 → SUATTDRO 21:25 → N.2E 23:32 → N.CC 03-07 05:44
PROVIDERS: ADMIT Hospitalist; ATTEND Internal Medicine

== ENCOUNTER 2020-10-30 12:40 | Inpatient (IN) ==
[2020-10-30 13:17] LABS: Basophils # 0.1 10*3/uL (0.0-0.2); Basophils % 0.4 % (0.0-0.8); Eosinophils # 0.3 10*3/uL (0.0-0.87); Eosinophils % 2.1 % (0.00-10.9); Hematocrit 38.2 VOL% (35.7-47.0); Immature Granulocytes % 0.4 %; Immature Granulocytes Absolute 0.05 #; Lymphocytes # 3.1 10*3/uL (1.4-4.0); Lymphocytes % 24.7 % (21.3-54.2); Mean Corpuscular Volume 91.6 FL (87-102); Mean Platelet Volume 10.1 FL (9.6-12.0); Monocytes % 5.8 % (1.7-12.7); Neutrophils % 66.6 % (38.7-73.9); Platelet Count 345 T/CUMM (130-400); Red Blood Count 4.17 MC/CUMM (3.8-5.5); Red Cell Distribution Width 13.4 % (9.3-17.3); White Blood Count 12.7 T/CUMM (4-12)
[2020-10-30 13:24] LABS: PT Patient Result 10.5 SECS (9.8-11.9)
[2020-10-30 13:37] LABS: Barbiturates Screen,Urine Negative (Negative); Benzodiazepines Screen,Urine Negative (Negative); Cannabinoid Screen,Urine Negative (Negative); Opiate Screen,Urine Negative (Negative); Phencyclidine Screen,Urine Negative (Negative)
[2020-10-30 13:40] LABS: Bilirubin,Urine Negative (Negative); Blood, Urine Negative (Negative); Glucose,Urine (UA) Negative (Negative); Hyaline Casts,Urine 60 /LPF (0-3); Ketones,Urine Negative (Negative); Nitrite,Urine Negative (Negative); Protein,Urine Negative; RBC,Urine <1 /HPF (0-4); Squamous Epithelial Cell,Urine Occasional /HPF (0-10); Urine Appearance CLEAR (Clear); Urine Color Yellow (Yellow); Urine Specific Gravity 1.011 (1.001-1.035); Urine Urobilinogen < 2.0 EU/DL (0.2-1.0); WBC,Urine 1 /HPF (0-6)
[2020-10-30 13:42] LABS: Albumin 4.1 G/DL (3.4-5.0); Bilirubin,Total 0.7 MG/DL (0.2-1.0); Calcium 10.3 MG/DL (8.5-10.1); Osmolality,Calculated 272.1 MOS/KG (273-304); Potassium 4.1 MMOL/L (3.5-5.1); Thyroid Stimulating Hormone 1.52 uIU/ml (0.358-3.74); Total Protein 7.6 G/DL (6.4-8.2)
[2020-10-30] MEDS ORDERED: SODIUM CHLORIDE 0.9% 500 ML IV STA (14:40)
[2020-10-30] MEDS ORDERED: ONDANSETRON 4 MG/2 ML VIAL IV PRN (14:45)
[2020-10-30] MEDS ORDERED: cefTRIAXone 1,000 MG in SODIUM CHLORIDE 0.9% 100 ML IV STA (14:48)
[2020-10-30] MEDS: SODIUM CHLORIDE 0.9% 1,000 ML IV SCH (17:37)
[2020-10-30 19:04] LABS: Free T4 (Free Thyroxine) 1.31 NG/DL (0.76-1.46)
[2020-10-30] MEDS: ACETAMINOPHEN 325 MG TABLET PO PRN (19:33)
[2020-10-30] MEDS: DOCUSATE SODIUM 100 MG CAPSULE PO SCH (20:35)
[2020-10-30] MEDS: FLUTICASONE PROPIONATE INH SCH (20:35)
[2020-10-30] MEDS: SERTRALINE 50 MG TABLET PO SCH (20:35)
[2020-10-30] MEDS: ASCORBIC ACID 500 MG TABLET PO SCH (20:35)
[2020-10-30] MEDS: ATORVASTATIN 10 MG TABLET PO SCH (20:35)
[2020-10-30] MEDS: SALMETEROL INH SCH (20:35)
[2020-10-30] MEDS: BUDESONIDE/FORMOTEROL 160-4.5 INHALER 6 GM INH SCH (20:38)
[2020-10-31 05:32] LABS: Basophils % 0.5 % (0.0-0.8); Eosinophils # 0.2 10*3/uL (0.0-0.87); Eosinophils % 2.9 % (0.00-10.9); Hematocrit 32.9 VOL% (35.7-47.0); Immature Granulocytes % 0.4 %; Immature Granulocytes Absolute 0.03 #; Lymphocytes # 2.1 10*3/uL (1.4-4.0); Lymphocytes % 24.9 % (21.3-54.2); Mean Corpuscular HGB Conc 33.4 GM/DL (32-36); Mean Corpuscular Volume 94.5 FL (87-102); Mean Platelet Volume 10.4 FL (9.6-12.0); Monocytes % 7.9 % (1.7-12.7); Neutrophils % 63.4 % (38.7-73.9); Platelet Count 295 T/CUMM (130-400); Red Blood Count 3.48 MC/CUMM (3.8-5.5)
[2020-10-31 05:33] LABS: White Blood Count 8.3 T/CUMM (4-12)
[2020-10-31 05:44] LABS: Albumin 3.2 G/DL (3.4-5.0); Bilirubin,Total 0.8 MG/DL (0.2-1.0); Calcium 8.9 MG/DL (8.5-10.1); Osmolality,Calculated 274.8 MOS/KG (273-304); Potassium 3.5 MMOL/L (3.5-5.1)
[2020-10-31] MEDS: LEVOTHYROXINE 25 MCG TABLET PO SCH (06:21)
[2020-10-31] MEDS: SODIUM CHLORIDE 0.9% 1,000 ML IV SCH ×2 (07:21→18:01)
[2020-10-31] MEDS ORDERED: ASPIRIN 325 MG TABLET PO SCH (09:00)
[2020-10-31] MEDS ORDERED: MAGNESIUM SULF RIDER 4 GM in PREMIX 1 EACH IV STA (09:05)
[2020-10-31] MEDS: ESTRADIOL 1 MG TABLET PO SCH (10:44)
[2020-10-31] MEDS: DOCUSATE SODIUM 100 MG CAPSULE PO SCH ×2 (10:44→20:16)
[2020-10-31] MEDS: ASCORBIC ACID 500 MG TABLET PO SCH ×2 (10:45→20:15)
[2020-10-31] MEDS: PANTOPRAZOLE 40 MG TABLET PO SCH (10:45)
[2020-10-31] MEDS: FLUTICASONE 50 MCG NASAL SPRAY 16 GM BOTTLE BOTH NARES SCH (10:47)
[2020-10-31] MEDS: SALMETEROL INH SCH ×2 (10:50→20:16)
[2020-10-31] MEDS: FLUTICASONE PROPIONATE INH SCH ×2 (10:50→20:16)
[2020-10-31] MEDS: LOSARTAN 50 MG TABLET PO SCH (10:53)
[2020-10-31] MEDS: ACETAMINOPHEN 325 MG TABLET PO PRN ×2 (10:56→20:23)
[2020-10-31] MEDS: BUDESONIDE/FORMOTEROL 160-4.5 INHALER 6 GM INH SCH ×2 (11:07→20:25)
[2020-10-31] MEDS: POTASSIUM PHOS/SOD PHOS 250 MG TABLET PO SCH ×3 (12:07→20:16)
[2020-10-31] MEDS ORDERED: ALUMINUM/MAGNES/SIMETH MAX STR 30 ML UDCUP PO PRN (18:24)
[2020-10-31] MEDS: SERTRALINE 50 MG TABLET PO SCH (20:15)
[2020-10-31] MEDS: ATORVASTATIN 10 MG TABLET PO SCH (20:28)
[2020-10-31] MEDS ORDERED: MORPHINE 4 MG/1 ML VIAL ONE (22:40)
[2020-10-31] MEDS: MORPHINE 4 MG/1 ML VIAL IV PRN ×2 (22:42→23:05)
[2020-10-31] MEDS: NITROGLYCERIN SL 0.4 MG TABLET SL PRN ×2 (22:47→22:56)
[2020-10-31] MEDS ORDERED: FUROSEMIDE 20 MG/2 ML VIAL IV ONE (23:01)
[2020-10-31] MEDS ORDERED: MORPHINE 4 MG/1 ML VIAL IV PRN (23:01)
[2020-10-31] MEDS ORDERED: NITROGLYCERIN SL 0.4 MG TABLET SL ONE (23:01)
[2020-10-31] MEDS: CLORAZEPATE 7.5 MG TABLET PO PRN (23:19)
[2020-10-31 23:22] LABS: Troponin I < 0.015 NG/ML (0.00-0.045)
[2020-10-31] MEDS ORDERED: LORazepam 2 MG/1 ML VIAL IV PRN (23:54)
[2020-11-01] MEDS: SODIUM CHLORIDE 0.9% 1,000 ML IV SCH (01:37)
[2020-11-01 04:42] LABS: Troponin I < 0.015 NG/ML (0.00-0.045)
[2020-11-01] MEDS: LEVOTHYROXINE 25 MCG TABLET PO SCH (06:19)
[2020-11-01 07:59] LABS: Troponin I < 0.015 NG/ML (0.00-0.045)
[2020-11-01] MEDS: LOSARTAN 50 MG TABLET PO SCH (09:18)
[2020-11-01] MEDS: ASPIRIN CHEW 81 MG TABLET PO SCH (09:19)
[2020-11-01] MEDS: DOCUSATE SODIUM 100 MG CAPSULE PO SCH ×2 (09:19→20:33)
[2020-11-01] MEDS: POTASSIUM PHOS/SOD PHOS 250 MG TABLET PO SCH ×4 (09:19→20:33)
[2020-11-01] MEDS: FLUTICASONE 50 MCG NASAL SPRAY 16 GM BOTTLE BOTH NARES SCH (09:19)
[2020-11-01] MEDS: ESTRADIOL 1 MG TABLET PO SCH (09:19)
[2020-11-01] MEDS: PANTOPRAZOLE 40 MG TABLET PO SCH (09:22)
[2020-11-01] MEDS: SALMETEROL INH SCH ×2 (09:22→21:40)
[2020-11-01] MEDS: BUDESONIDE/FORMOTEROL 160-4.5 INHALER 6 GM INH SCH ×2 (09:22→21:39)
[2020-11-01] MEDS: FLUTICASONE PROPIONATE INH SCH ×2 (09:22→21:40)
[2020-11-01] MEDS: ASCORBIC ACID 500 MG TABLET PO SCH ×2 (09:23→20:33)
[2020-11-01 10:23] LABS: Calcium 8.5 MG/DL (8.5-10.1); Osmolality,Calculated 272.8 MOS/KG (273-304); Potassium 3.2 MMOL/L (3.5-5.1)
[2020-11-01] MEDS ORDERED: CETIRIZINE 10 MG TABLET PO SCH (12:00)
[2020-11-01] MEDS: METOPROLOL TARTRATE 50 MG TABLET PO SCH ×2 (13:01→20:33)
[2020-11-01] MEDS: ACETAMINOPHEN 325 MG TABLET PO PRN (13:04)
[2020-11-01] MEDS ORDERED: POTASSIUM CHLORIDE 20 MEQ TABLET PO ONE (17:40)
[2020-11-01] MEDS: CLORAZEPATE 7.5 MG TABLET PO PRN (18:30)
[2020-11-01] MEDS: CETIRIZINE 10 MG TABLET PO SCH (20:33)
[2020-11-01] MEDS: SERTRALINE 50 MG TABLET PO SCH (20:33)
[2020-11-01] MEDS: ATORVASTATIN 10 MG TABLET PO SCH (20:33)
[2020-11-01] MEDS: POTASSIUM CHLORIDE 20 MEQ TABLET PO SCH (21:46)
[2020-11-02] MEDS: LEVOTHYROXINE 25 MCG TABLET PO SCH (06:03)
[2020-11-02] MEDS: SODIUM CHLORIDE 0.9% 1,000 ML IV SCH ×2 (06:03→07:00)
[2020-11-02 06:16] LABS: Calcium 8.2 MG/DL (8.5-10.1); Osmolality,Calculated 272.7 MOS/KG (273-304); Potassium 4.1 MMOL/L (3.5-5.1)
[2020-11-02] MEDS: ESTRADIOL 1 MG TABLET PO SCH (08:22)
[2020-11-02] MEDS: METOPROLOL TARTRATE 50 MG TABLET PO SCH (08:22)
[2020-11-02] MEDS: ASPIRIN CHEW 81 MG TABLET PO SCH (08:22)
[2020-11-02] MEDS: DOCUSATE SODIUM 100 MG CAPSULE PO SCH (08:22)
[2020-11-02] MEDS: ASCORBIC ACID 500 MG TABLET PO SCH (08:22)
[2020-11-02] MEDS: FLUTICASONE 50 MCG NASAL SPRAY 16 GM BOTTLE BOTH NARES SCH (08:23)
[2020-11-02] MEDS: POTASSIUM CHLORIDE 20 MEQ TABLET PO SCH (08:23)
[2020-11-02] MEDS: POTASSIUM PHOS/SOD PHOS 250 MG TABLET PO SCH (08:23)
[2020-11-02] MEDS: LOSARTAN 50 MG TABLET PO SCH (08:23)
[2020-11-02] MEDS: PANTOPRAZOLE 40 MG TABLET PO SCH (08:23)
[2020-11-02] MEDS: CETIRIZINE 10 MG TABLET PO SCH (08:23)
[2020-11-02] MEDS: BUDESONIDE/FORMOTEROL 160-4.5 INHALER 6 GM INH SCH (08:25)
[2020-11-02] MEDS: SALMETEROL INH SCH (08:25)
[2020-11-02] MEDS: FLUTICASONE PROPIONATE INH SCH (08:25)
[2020-11-02 11:21] VITALS: BP 129/49
== END 2020-11-02 13:06 | disposition home or self-care (01) | DRG 683 ==
LOC: N.ED 12:40 → N.EDINP 12:40 → N.3E 15:46
PROVIDERS: ADMIT Family Medicine; ATTEND Family Medicine